=== PATIENT | female | born 1985 | race Two or more races ===

== ENCOUNTER 2019-01-01 18:04 | Emergency (ER) | payer MEDICAID ==
[~2019-01-01] VITALS: Ht 167.6 cm; Wt 67.0 kg
[2019-01-01 20:14] VITALS: BP 138/81
== END 2019-01-01 20:14 | disposition home or self-care (01) ==
LOC: ER 18:04
DX: M23.92 Unspecified internal derangement of left knee (principal); Y93.66 Activity, soccer; Z88.2 Allergy status to sulfonamides
CPT/HCPCS: 81025; 99282

== ENCOUNTER 2019-02-03 02:03 | Emergency (ER) | payer MEDICAID ==
[~2019-02-03] VITALS: Ht 167.6 cm; Wt 71.0 kg
[2019-02-03 04:04] VITALS: BP 126/80
== END 2019-02-03 04:05 | disposition home or self-care (01) ==
LOC: ER 02:03
DX: R60.0 Localized edema (principal); F32.9 Major depressive disorder, single episode, unspecified; Z98.890 Other specified postprocedural states
CPT/HCPCS: 93971; 99284